=== PATIENT | male | born 1990 | race Caucasian/White ===

== ENCOUNTER → 2020-01-06 | Outpatient (CLI) | payer OTHER ==
--- NOTE | 2020-01-06 14:45 | CARD ---
MR#: [id number] Date of Study: 01/06/2020 Ordering Physician: LIZZIE LAZARO, Referring Physician: LIZZIE LAZARO, Tech: Tiffany Cleaning KORI APPROVED REPORT EXAM: Two-dimensional and M-mode echocardiogram with Doppler and color Doppler. Other Information Quality : GoodHR: 84bpm Rhythm : NSR INDICATION Palpitations. 2D DIMENSIONS RVDd4.1 (2.9-3.5cm)IVSd1.0 (0.7-1.1cm) Aortic Root(2D)3.4 (2.0-3.7cm)LVDd4.7 (3.9-5.9cm) LVOT Diameter2.2 (1.8-2.4cm)PWd1.0 (0.7-1.1cm) LVDs3.3 (2.5-4.0cm)FS (%) 30.2 % SV58.8 mlLVEF(%)57.5 (>50%) Aortic Valve AoV Peak Tee.135.3cm/Khanh Peak GR.7.3mmHg LVOT Peak Tee.99.6cm/sAVA (VMAX)2.69cm2 Mitral Valve MV E Qthnhipn25.7cm/sMV DECEL [id number] MV A Gulfldwo00.6cm/sE/A Ratio1.2 MV A [id number] Pulmonary Valve PV Peak Srrwryhm24.7cm/s Tricuspid Valve TR P. Rshgrmmk149qh/sRAP [id number] TR Peak Gr.31bbTbYGMD31hjZh LEFT VENTRICLE The left ventricle is normal size. There is normal left ventricular wall thickness. Left ventricle sy stolic function is normal. The Ejection Fraction is 55-60%. There is normal LV segmental wall motion. The left ventricular diastolic function and filling is normal for age. RIGHT VENTRICLE The right ventricle is normal size. The right ventricular systolic function is normal. ATRIA The left atrium size is normal. The right atrium size is normal. The interatrial septum is intact wit h no evidence for an atrial septal defect or patent foramen ovale as noted on 2-D or Doppler imaging. AORTIC VALVE The aortic valve is normal in structure and function. Doppler and Color Flow revealed no significant aortic regurgitation. There is no significant aortic valvular stenosis. MITRAL VALVE The mitral valve is normal in structure and function. There is no mitral valve stenosis. Doppler and Color Flow revealed no mitral valve regurgitation noted. TRICUSPID VALVE The tricuspid valve is normal in structure and function. Trace Tricuspid regurgitation. The pulmonary artery systolic pressure is estimated at 20 mmHg. PULMONIC VALVE The pulmonary valve is normal in structure and function. Trace pulmonic regurgitation. GREAT VESSELS The aortic root is normal in size. The ascending aorta is normal in size. The IVC is normal in size a nd collapses >50% with inspiration. PERICARDIAL EFFUSION There is no evidence of significant pericardial effusion. Critical Notification Critical Value: No <Conclusion> The left ventricle is normal size. Left ventricle systolic function is normal. The Ejection Fraction is 55-60%. There is normal LV segmental wall motion. Doppler and Color Flow revealed no significant aortic regurgitation. There is no significant aortic valvular stenosis. Doppler and Color Flow revealed no mitral valve regurgitation noted. Trace Tricuspid regurgitation. The pulmonary artery systolic pressure is estimated at 20 mmHg. Signed by : Chandu Franco MD Electronically Approved : 01/06/2020 14:45:07
== END ==
LOC: ECHO 07:31
PROVIDERS: ATTEND Internal Medicine Cardiovascular Disease
DX: R00.2 Palpitations (principal)
CPT/HCPCS: 93306